=== PATIENT | female | born 1970 | race Caucasian/White ===

== ENCOUNTER 2018-06-17 11:57 | Outpatient (REF) | payer MEDICAID, SELFPAY ==
[2018-06-20 07:37] LABS: O-desmethyltramadol 14547 ng/mL (Cutoff:25); Tramadol 24528 ng/mL (Cutoff:25)
== END 2018-06-17 12:17 ==
LOC: NCHCN 11:57
PROVIDERS: PCP Family Medicine; Visit Provider Family Medicine
DX: Z51.81 Encounter for therapeutic drug level monitoring (principal); Z79.899 Other long term (current) drug therapy
CPT/HCPCS: 80373